=== PATIENT | female | born 2000 | race Caucasian/White ===

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

== ENCOUNTER 2022-07-30 14:00 | Emergency (ER) | payer BC, MEDICAID ==
[~2022-07-30] VITALS: Ht 167.6 cm; Wt 56.8 kg
[2022-07-30 14:43] LABS: BASOPHILS % (AUTO) 0.3 % (0-1); EOSINOPHILS # (AUTO) 0.1 X10'3 (0-0.9); EOSINOPHILS % (AUTO) 0.9 % (0-6); HEMOGLOBIN 14.1 g/dl (12.0-16.0); LYMPHOCYTES # (AUTO) 1.6 X10'3 (1.1-4.8); LYMPHOCYTES % (AUTO) 16.7 % (21-51); MEAN CORPUSCULAR HEMOGLOBIN 29.7 PG (27.0-31.0); MEAN CORPUSCULAR HGB CONC 33.7 g/dL (33.0-36.5); MEAN CORPUSCULAR VOLUME 88.1 FL (78-98); MEAN PLATELET VOLUME 7.3 FL (7.4-10.4); MONOCYTES # (AUTO) 0.8 X10'3 (0-0.9); MONOCYTES % (AUTO) 8.2 % (2-12); NEUTROPHILS # (AUTO) 7.2 X10'3 (1.8-7.7); NEUTROPHILS % (AUTO) 73.9 % (42-75); PLATELET COUNT 387 X10'3 (140-440); RED BLOOD COUNT 4.76 X10'6 (4.20-5.60); RED CELL DISTRIBUTION WIDTH 14.4 % (11.5-14.5); WHITE BLOOD COUNT 9.7 X10'3 (4.5-11.0)
[2022-07-30 14:46] LABS: CLARITY,URINE CLOUDY (Clear); COLOR,URINE YELLOW (Yellow); GLUCOSE, URINE >=1000 mg/dl (Neg); KETONES,URINE TRACE mg/dl (Neg); LEUKOCYTE ESTERASE ,URINE SMALL (Neg); NITRITES, URINE NEGATIVE (Neg); OCCULT BLOOD,URINE LARGE (Neg); PROTEIN,URINE 30 mg/dl (Neg); UROBILINOGEN,URINE 0.2 E.U/dL (0.2-1.0)
[2022-07-30 14:48] LABS: URINE HCG NEGATIVE (NEG)
[2022-07-30 14:50] LABS: UA COLLECTION TYPE CLN CATCH MIDSTREAM
[2022-07-30 14:55] LABS: BACTERIA,URINE 3+ /HPF (Neg); MUCUS STRANDS NONE SEEN /LPF (Neg); RBC,URINE 20-50 /HPF (0-2); SQUAMOUS EPITHELIAL CELL,UR MODERATE /LPF (FEW); TRANSITIONAL EPI CELLS,URINE FEW /HPF; WBC CLUMPS,URINE FEW /HPF (NEGATIVE); WBC,URINE 50-100 /HPF (0-4)
[2022-07-30 15:02] LABS: ALANINE AMINOTRANSFERASE 25 U/L (12-78); ALBUMIN 3.8 G/DL (3.4-5.0); ALBUMIN/GLOBULIN RATIO 1.2 (1.1-1.5); ALKALINE PHOSPHATASE 133 IU/L (46-116); ANION GAP 9 (8-16); ASPARTATE AMINO TRANSFERASE 22 U/L (10-37); BILIRUBIN,TOTAL 1.5 MG/DL (0.1-1.0); BLOOD UREA NITROGEN 14 MG/DL (7-18); BUN/CREATININE RATIO 15.4 (6.6-38.0); CALCIUM 8.7 MG/DL (8.5-10.1); CHLORIDE 103 MMOL/L (99-107); CREATININE 0.91 MG/DL (0.40-0.90); GLUCOSE 360 MG/DL (70-104); LIPASE < 50 U/L (73-393); POTASSIUM 4.1 MMOL/L (3.5-5.1); SODIUM 136 MMOL/L (135-145); TOTAL CARBON DIOXIDE 24.1 MMOL/L (24-32); eGFR 78 ML/MIN
[2022-07-30] MEDS ORDERED: TOPI25TA15 PO (15:28)
[2022-07-30] MEDS ORDERED: normal saline 1000ml 1,000 ML IV ONE (15:30)
[2022-07-30] MEDS ORDERED: CefTRIAXone/D5W-Rocephin 1gm 50 ML IV ONE (15:30)
--- NOTE | 2022-07-30 15:38 | NUR ---
pt is allergic to penicillin and has rocephin ordered, pharmacy is questioning the order. the pt and the provider are aware and are ok with the medication.
[2022-07-30] MEDS ORDERED: CEFD300C3 PO (16:21)
--- NOTE | 2022-08-02 14:14 | NUR ---
DR RING CALLED PT, PHONE IS NOT IN SERVICE Addendum: 08/02/22 at 1443 by DAYNA LETTER SENT TO PT
== END 2022-07-30 17:11 | disposition home or self-care (01) ==
LOC: ER 14:00
DX: N39.0 Urinary tract infection, site not specified (principal); E11.65 Type 2 diabetes mellitus with hyperglycemia; Z88.0 Allergy status to penicillin; Z88.1 Allergy status to other antibiotic agents; Z88.2 Allergy status to sulfonamides; Z79.899 Other long term (current) drug therapy
CPT/HCPCS: 36415; 80053; 81001; 81025; 82948; 83690; 85025; 87077; 87088; 87186; 96374; 99283; J0696; J7030

== ENCOUNTER 2022-09-06 02:44 | Emergency (ER) | payer BC, MEDICAID ==
[~2022-09-06] VITALS: Ht 167.6 cm; Wt 54.5 kg
[~2022-09-06 02:44] MED LIST: CIPR2.5D21 EACHEYE; TOPI25TA15 PO
[2022-09-06] MEDS ORDERED: normal saline 1000ML IV soln IVB ONE (03:00)
[2022-09-06] MEDS ORDERED: ipratropium/albuterol 3ml nebule NEB ONE (03:00)
[2022-09-06] MEDS ORDERED: methylPREDNISolone sod succ 125mg/2ml vial IV ONE (03:00)
[2022-09-06 03:37] LABS: BASOPHILS # (AUTO) 0.1 X10'3 (0-0.2); BASOPHILS % (AUTO) 0.5 % (0-1); EOSINOPHILS # (AUTO) 0.8 X10'3 (0-0.9); EOSINOPHILS % (AUTO) 7.7 % (0-6); HEMATOCRIT 41.9 % (35.0-45.0); HEMOGLOBIN 14.2 g/dl (12.0-16.0); LYMPHOCYTES # (AUTO) 3.2 X10'3 (1.1-4.8); LYMPHOCYTES % (AUTO) 31.1 % (21-51); MEAN CORPUSCULAR HEMOGLOBIN 29.9 PG (27.0-31.0); MEAN CORPUSCULAR VOLUME 87.8 FL (78-98); MEAN PLATELET VOLUME 7.4 FL (7.4-10.4); MONOCYTES # (AUTO) 0.7 X10'3 (0-0.9); NEUTROPHILS # (AUTO) 5.5 X10'3 (1.8-7.7); NEUTROPHILS % (AUTO) 53.7 % (42-75); PLATELET COUNT 342 X10'3 (140-440); RED BLOOD COUNT 4.77 X10'6 (4.20-5.60); RED CELL DISTRIBUTION WIDTH 13.2 % (11.5-14.5); WHITE BLOOD COUNT 10.2 X10'3 (4.5-11.0)
[2022-09-06 03:44] LABS: ALANINE AMINOTRANSFERASE 19 U/L (12-78); ALBUMIN 3.7 G/DL (3.4-5.0); ALBUMIN/GLOBULIN RATIO 0.9 (1.1-1.5); ALKALINE PHOSPHATASE 156 IU/L (46-116); ANION GAP 12 (8-16); ASPARTATE AMINO TRANSFERASE 13 U/L (10-37); BILIRUBIN,TOTAL 0.5 MG/DL (0.1-1.0); BLOOD UREA NITROGEN 7 MG/DL (7-18); BUN/CREATININE RATIO 7.9 (10.0-20.0); CALCIUM 8.9 MG/DL (8.5-10.1); CHLORIDE 100 MMOL/L (99-107); CREATININE 0.89 MG/DL (0.40-0.90); GLUCOSE 278 MG/DL (70-104); POTASSIUM 3.2 MMOL/L (3.5-5.1); SODIUM 136 MMOL/L (135-145); TOTAL CARBON DIOXIDE 24.1 MMOL/L (24-32); TOTAL PROTEIN 7.6 G/DL (6.4-8.2); eGFR 80 ML/MIN
[2022-09-06] MEDS ORDERED: PRED20TA PO (04:07)
[2022-09-06] MEDS ORDERED: ALBU90AE INH (04:10)
[2022-09-06 04:34] VITALS: BP 133/85
== END 2022-09-06 04:36 | disposition home or self-care (01) ==
LOC: ER 02:44
DX: J45.909 Unspecified asthma, uncomplicated (principal); E11.9 Type 2 diabetes mellitus without complications; Z98.890 Other specified postprocedural states; Z88.0 Allergy status to penicillin; Z88.2 Allergy status to sulfonamides; Z88.1 Allergy status to other antibiotic agents; Z79.899 Other long term (current) drug therapy
CPT/HCPCS: 36415; 80053; 82948; 85025; 94640; 96361; 96374; 99283; J2930; J7030; 94760; 96360

== ENCOUNTER 2022-09-10 13:13 | Emergency (ER) | payer BC, MEDICAID ==
[~2022-09-10] VITALS: Ht 167.6 cm; Wt 56.0 kg
[~2022-09-10 13:13] MED LIST changes: +ALBU90AE INH; -CIPR2.5D21 EACHEYE; +PRED20TA PO
[2022-09-10 13:21] VITALS: BP 122/82
[2022-09-10] MEDS ORDERED: ALPRAZolam 0.5mg tablet PO ONE (14:10)
[2022-09-10] MEDS ORDERED: ALPR-624 PO (14:12)
== END 2022-09-10 14:32 | disposition home or self-care (01) ==
LOC: ER 13:13
DX: F41.9 Anxiety disorder, unspecified (principal); J45.909 Unspecified asthma, uncomplicated; E11.9 Type 2 diabetes mellitus without complications; Z88.0 Allergy status to penicillin; Z88.1 Allergy status to other antibiotic agents; Z88.2 Allergy status to sulfonamides; Z88.8 Allergy status to other drugs, medicaments and biological substances; Z79.899 Other long term (current) drug therapy; Z79.1 Long term (current) use of non-steroidal anti-inflammatories (NSAID)
CPT/HCPCS: 99283

== ENCOUNTER 2022-10-06 21:00 | Inpatient (IN) | payer BC, MEDICAID ==
[~2022-10-06] VITALS: Ht 167.6 cm; Wt 57.6 kg
[~2022-10-06 21:00] MED LIST changes: +ALPR-624 PO; -PRED20TA PO
[2022-10-06] MEDS ORDERED: normal saline 1000ml 1,000 ML IVB ONE (21:15)
[2022-10-06 21:36] LABS: URINE HCG NEGATIVE (NEG)
[2022-10-06 21:40] LABS: CLARITY,URINE CLEAR (Clear); COLOR,URINE STRAW (Yellow); GLUCOSE, URINE >=1000 mg/dl (Neg); KETONES,URINE >=80 mg/dl (Neg); LEUKOCYTE ESTERASE ,URINE NEGATIVE (Neg); NITRITES, URINE NEGATIVE (Neg); OCCULT BLOOD,URINE NEGATIVE (Neg); PROTEIN,URINE NEGATIVE (Neg); UROBILINOGEN,URINE 0.2 E.U/dL (0.2-1.0)
[2022-10-06 21:40] LABS: BASOPHILS % (AUTO) 0.3 % (0-1); EOSINOPHILS # (AUTO) 0.1 X10'3 (0-0.9); EOSINOPHILS % (AUTO) 0.6 % (0-6); HEMATOCRIT 41.5 % (35.0-45.0); LYMPHOCYTES # (AUTO) 2.7 X10'3 (1.1-4.8); LYMPHOCYTES % (AUTO) 30.6 % (21-51); MEAN CORPUSCULAR HEMOGLOBIN 30.1 PG (27.0-31.0); MEAN CORPUSCULAR HGB CONC 33.7 g/dL (33.0-36.5); MEAN CORPUSCULAR VOLUME 89.2 FL (78-98); MEAN PLATELET VOLUME 7.9 FL (7.4-10.4); MONOCYTES # (AUTO) 0.8 X10'3 (0-0.9); MONOCYTES % (AUTO) 8.5 % (2-12); NEUTROPHILS # (AUTO) 5.3 X10'3 (1.8-7.7); PLATELET COUNT 308 X10'3 (140-440); RED BLOOD COUNT 4.65 X10'6 (4.20-5.60); WHITE BLOOD COUNT 8.9 X10'3 (4.5-11.0)
[2022-10-06 21:41] LABS: UA COLLECTION TYPE CLN CATCH MIDSTREAM
[2022-10-06 21:58] LABS: ALANINE AMINOTRANSFERASE 32 U/L (12-78); ALBUMIN 3.9 G/DL (3.4-5.0); ALBUMIN/GLOBULIN RATIO 1.2 (1.1-1.5); ALKALINE PHOSPHATASE 184 IU/L (46-116); ANION GAP 19 (8-16); ASPARTATE AMINO TRANSFERASE 32 U/L (10-37); BILIRUBIN,TOTAL 0.9 MG/DL (0.1-1.0); BLOOD UREA NITROGEN 17 MG/DL (7-18); BUN/CREATININE RATIO 15.2 (10.0-20.0); CHLORIDE 91 MMOL/L (99-107); CREATININE 1.12 MG/DL (0.40-0.90); POTASSIUM 4.2 MMOL/L (3.5-5.1); SODIUM 125 MMOL/L (135-145); TOTAL CARBON DIOXIDE 15.4 MMOL/L (24-32); TOTAL PROTEIN 7.1 G/DL (6.4-8.2); eGFR 61 ML/MIN
[2022-10-06 22:27] LABS: BACTERIA,URINE FEW /HPF (Neg); RBC,URINE 0-2 /HPF (0-2); SQUAMOUS EPITHELIAL CELL,UR MODERATE /LPF (FEW); WBC,URINE 0-4 /HPF (0-4)
[2022-10-06] MEDS ORDERED: insulin regular, human U-100 3ml vial - multi-dose IV PRN (22:30)
[2022-10-06] MEDS ORDERED: normal saline 1000ml 1,000 ML IV SCH (22:30)
[2022-10-06] MEDS ORDERED: Insulin Reg/NS 100units/100mL 100 ML IV SCH (22:30)
[2022-10-06] MEDS ORDERED: normal saline 1000ML IV soln IVB ONE (22:30)
[2022-10-06 22:47] LABS: GLUCOSE 670 MG/DL (70-104)
[2022-10-06 23:06] LABS: PHOSPHORUS 4.7 MG/DL (2.3-4.5)
--- NOTE | 2022-10-07 00:18 | NUR ---
pt up to the BR
[2022-10-07] MEDS ORDERED: mag hydrox/Alum hydrox/simeth 30ml oral suspension PO PRN (00:20)
[2022-10-07] MEDS ORDERED: acetaminophen 325mg tablet PO PRN (00:20)
[2022-10-07] MEDS ORDERED: potassium Cl 20 mEq SR tablet PO PRN ×2 (00:20)
[2022-10-07] MEDS ORDERED: potassium Cl 40MEQ/1/2NS 520ml 520 ML IV PRN (00:20)
[2022-10-07] MEDS ORDERED: magnesium hydroxide 30ml (MOM) UD suspension PO PRN (00:20)
[2022-10-07] MEDS ORDERED: ondansetron/PF 4mg/2ml inj IV PRN (00:20)
[2022-10-07] MEDS: normal saline 1000ml 1,000 ML IV SCH ×3 (00:35→13:40)
[2022-10-07] MEDS: potassium CL 20mEq in D5-1/2NS 1,000 ML IV PRN ×3 (01:17→11:09)
[2022-10-07 01:40] LABS: ALBUMIN 3.2 G/DL (3.4-5.0); ANION GAP 12 (8-16); BLOOD UREA NITROGEN 13 MG/DL (7-18); BUN/CREATININE RATIO 15.5 (10.0-20.0); CALCIUM 7.7 MG/DL (8.5-10.1); CHLORIDE 106 MMOL/L (99-107); CREATININE 0.84 MG/DL (0.40-0.90); GLUCOSE 249 MG/DL (70-104); POTASSIUM 3.3 MMOL/L (3.5-5.1); SODIUM 135 MMOL/L (135-145); TOTAL CARBON DIOXIDE 16.6 MMOL/L (24-32); eGFR 86 ML/MIN
[2022-10-07 04:24] LABS: ALBUMIN 2.8 G/DL (3.4-5.0); ANION GAP 7 (8-16); BLOOD UREA NITROGEN 10 MG/DL (7-18); BUN/CREATININE RATIO 12.8 (10.0-20.0); CALCIUM 7.6 MG/DL (8.5-10.1); CHLORIDE 109 MMOL/L (99-107); CREATININE 0.78 MG/DL (0.40-0.90); GLUCOSE 188 MG/DL (70-104); POTASSIUM 3.5 MMOL/L (3.5-5.1); SODIUM 137 MMOL/L (135-145); TOTAL CARBON DIOXIDE 21.3 MMOL/L (24-32); eGFR > 90 ML/MIN
[2022-10-07] MEDS ORDERED: ONDA4TAB12 PO (05:20)
[2022-10-07] MEDS ORDERED: ALBU18HF2 INH (05:21)
[2022-10-07] MEDS ORDERED: albuterol 2.5 MG/3 ML nebule NEB PRN (05:30)
--- NOTE | 2022-10-07 05:43 | NUR ---
PER MD REYNA INSULIN DRIP TO BE DECREASED FROM 5UNITS/HR TO 4UNITS/HR.
--- NOTE | 2022-10-07 07:10 | NUR ---
BS 79 mg/dl this am. Held insulin drip and called Dr. Little regarding this. Received order to give patient orange juice and recheck blood sugar in 1 hour.
[2022-10-07] MEDS ORDERED: K and/or MAG REPLACEMENT MC SCH (08:00)
[2022-10-07] MEDS ORDERED: docusate sod 100mg capsule PO SCH (08:00)
[2022-10-07] MEDS ORDERED: glucagon, human recombinant 1mg kit SUBCUT PRN (10:55)
[2022-10-07] MEDS ORDERED: dextrose 50%-water 50ml dispensing syringe IV PRN ×2 (10:55)
[2022-10-07] MEDS ORDERED: MESSAGE TO PHARMACY PO ONE (10:55)
[2022-10-07] MEDS ORDERED: DEXTROSE 15 GM of carb/4 tabs (each vial/BOTTLE has 4 tablets) PO PRN ×2 (10:55)
[2022-10-07] MEDS ORDERED: insulin Lispro (HumaLOG) vial - multi-dose SQ SCH (10:55)
--- NOTE | 2022-10-07 10:59 | NUR ---
Dr. Little seen this patient not too long ago. Dr. Little gave verbal order to advance the clear liquid diet to carb control diet as tolerated, to d/c insulin drip per protocol, and to initiate hyperglycemia/hypoglycemia protocol
--- NOTE | 2022-10-07 11:25 | NUR ---
Patient had late breakfast today, clear liquid diet. Pt tolerated clear liquid when she ate her clear liquid diet breakfast. Will d/c the insulin drip
--- NOTE | 2022-10-07 13:00 | NUR ---
Patient in room ED 1. I have received report from ED RN and had the opportunity to ask questions and assume patient care.
--- NOTE | 2022-10-07 13:29 | NUR ---
PAGER ID: [phone] MESSAGE: Janelle Triana 2022 B- Pt wanting repeat DKA labs. Pt asking to go home to her babies. -Kristen EXT [id number] Addendum: 10/07/22 at 1345 by Kristen Alves RN Orders received, please see interventions
--- NOTE | 2022-10-07 13:45 | NUR ---
PAGER ID: [phone] MESSAGE: Janelle Triana, [id number] B- Pt ate 100% of HH lunch. No s/s of n/v. Labs being drawn now. -Kristen EXT [id number]
--- NOTE | 2022-10-07 13:47 | NUR ---
Pt asking to DC home. Pt declined Admission assessment, 2 RN skin check, as well as the rest of admission interventions. Pt states she does not want to stay so doing the admission isn't necessary. MD Sidney ballard, please see notes. Pt tolerating CC diet for lunch. No s/s of n/v. Pt admittedly asking to go home and not stay the night. Addendum: 10/07/22 at 1423 by Kristen Alves RN Pt states she will wait for labs to result. Pt still declines any admission assessment. Charge Nurse and made aware.
[2022-10-07 14:02] VITALS: BP 102/67
[2022-10-07 14:07] LABS: ANION GAP 9 (8-16); BLOOD UREA NITROGEN 6 MG/DL (7-18); BUN/CREATININE RATIO 7.7 (10.0-20.0); CALCIUM 8.2 MG/DL (8.5-10.1); CHLORIDE 105 MMOL/L (99-107); CREATININE 0.78 MG/DL (0.40-0.90); GLUCOSE 249 MG/DL (70-104); POTASSIUM 3.9 MMOL/L (3.5-5.1); SODIUM 136 MMOL/L (135-145); eGFR > 90 ML/MIN
--- NOTE | 2022-10-07 14:22 | NUR ---
PAGER ID: [phone] MESSAGE: Katharine Triana 3023 B- Current labs resulted. -Kristen EXT [phone]
--- NOTE | 2022-10-07 14:56 | NUR ---
PAGER ID: [phone] MESSAGE: Janelle Triana [phone] B- Pt inquiring about discharge again.- Kristen ext [phone]
--- NOTE | 2022-10-07 15:25 | NUR ---
Pt DC'd to personal vehicle, Boyfriend driving. PIV to RFA removed, tip intact, no c/o pain with removal. VSS, Pt afebrile, no issues with medication. No s/s of hyper/hypoglycemia Discharge education provided. All discharge questions answered. All belongings left with Pt.
[2022-10-07] MEDS ORDERED: topiramate 25mg tablet PO SCH (21:00)
[2022-10-07] MEDS ORDERED: insulin glargine (Lantus) pen - multi-dose SQ SCH (21:00)
== END 2022-10-07 15:31 | disposition home or self-care (01) | DRG 919 ==
LOC: ER 21:00 → ED HOLD 10-07 00:19 → PCU 3S 10-07 13:23
PROVIDERS: ADMIT Internal Medicine; ATTEND Internal Medicine
DX: T85.614A Breakdown (mechanical) of insulin pump, initial encounter (principal); E10.10 Type 1 diabetes mellitus with ketoacidosis without coma; J45.909 Unspecified asthma, uncomplicated; Z79.4 Long term (current) use of insulin; Z88.0 Allergy status to penicillin; Z88.2 Allergy status to sulfonamides; Z88.8 Allergy status to other drugs, medicaments and biological substances; Z79.899 Other long term (current) drug therapy
CPT/HCPCS: 36415; 80048; 80053; 81001; 81025; 82948; 84100; 85025; 99285; G0378; J1815; J3480; J7030

== ENCOUNTER 2022-10-11 22:27 | Inpatient (IN) | payer BC, MEDICAID ==
[~2022-10-11] VITALS: Ht 167.6 cm; Wt 57.0 kg
[~2022-10-11 22:27] MED LIST changes: +ALBU18HF2 INH; -ALBU90AE INH; -ALPR-624 PO; +ONDA4TAB12 PO
[2022-10-11] MEDS ORDERED: normal saline 1000ml 1,000 ML IV ONE (22:50)
[2022-10-11] MEDS ORDERED: INSU100V11 SQ (23:09)
[2022-10-11 23:31] LABS: BASOPHILS # (AUTO) 0.1 X10'3 (0-0.2); BASOPHILS % (AUTO) 0.4 % (0-1); EOSINOPHILS # (AUTO) 0.1 X10'3 (0-0.9); EOSINOPHILS % (AUTO) 0.8 % (0-6); HEMATOCRIT 41.7 % (35.0-45.0); HEMOGLOBIN 13.7 g/dl (12.0-16.0); LYMPHOCYTES # (AUTO) 2.7 X10'3 (1.1-4.8); LYMPHOCYTES % (AUTO) 16.3 % (21-51); MEAN CORPUSCULAR HEMOGLOBIN 29.3 PG (27.0-31.0); MEAN CORPUSCULAR HGB CONC 32.9 g/dL (33.0-36.5); MEAN CORPUSCULAR VOLUME 89.1 FL (78-98); MEAN PLATELET VOLUME 7.5 FL (7.4-10.4); MONOCYTES # (AUTO) 1.1 X10'3 (0-0.9); MONOCYTES % (AUTO) 6.6 % (2-12); NEUTROPHILS # (AUTO) 12.5 X10'3 (1.8-7.7); NEUTROPHILS % (AUTO) 75.9 % (42-75); PLATELET COUNT 484 X10'3 (140-440); RED BLOOD COUNT 4.68 X10'6 (4.20-5.60); RED CELL DISTRIBUTION WIDTH 12.7 % (11.5-14.5); WHITE BLOOD COUNT 16.4 X10'3 (4.5-11.0)
[2022-10-11 23:33] LABS: CLARITY,URINE CLEAR (Clear); COLOR,URINE STRAW (Yellow); GLUCOSE, URINE >=1000 mg/dl (Neg); KETONES,URINE 40 mg/dl (Neg); LEUKOCYTE ESTERASE ,URINE NEGATIVE (Neg); NITRITES, URINE NEGATIVE (Neg); OCCULT BLOOD,URINE NEGATIVE (Neg); PROTEIN,URINE NEGATIVE (Neg); UROBILINOGEN,URINE 0.2 E.U/dL (0.2-1.0)
[2022-10-11 23:37] LABS: URINE HCG NEGATIVE (NEG)
[2022-10-11 23:38] LABS: UA COLLECTION TYPE CLN CATCH MIDSTREAM
[2022-10-11 23:39] LABS: SQUAMOUS EPITHELIAL CELL,UR MANY /LPF (FEW)
[2022-10-11 23:40] LABS: BACTERIA,URINE NONE SEEN /HPF (Neg); RBC,URINE 0-2 /HPF (0-2); WBC,URINE 0-4 /HPF (0-4)
[2022-10-11 23:46] LABS: ALANINE AMINOTRANSFERASE 27 U/L (12-78); ALBUMIN 4.1 G/DL (3.4-5.0); ALBUMIN/GLOBULIN RATIO 1.2 (1.1-1.5); ALKALINE PHOSPHATASE 203 IU/L (46-116); ANION GAP 18 (8-16); ASPARTATE AMINO TRANSFERASE 14 U/L (10-37); BILIRUBIN,TOTAL 1.5 MG/DL (0.1-1.0); BLOOD UREA NITROGEN 25 MG/DL (7-18); BUN/CREATININE RATIO 22.3 (10.0-20.0); CALCIUM 9.7 MG/DL (8.5-10.1); CHLORIDE 90 MMOL/L (99-107); CREATININE 1.12 MG/DL (0.40-0.90); LIPASE 55 U/L (73-393); POTASSIUM 4.3 MMOL/L (3.5-5.1); SODIUM 127 MMOL/L (135-145); TOTAL CARBON DIOXIDE 18.7 MMOL/L (24-32); TOTAL PROTEIN 7.6 G/DL (6.4-8.2); eGFR 61 ML/MIN
[2022-10-11] MEDS ORDERED: sodium phosphate inj. 15 MMOL in dextrose 5%-water 250 ML IV PRN (23:55)
[2022-10-11] MEDS ORDERED: potassium Cl 20 mEq SR tablet PO PRN ×2 (23:55)
[2022-10-11] MEDS ORDERED: sodium bicarbonate (8.4%) inj. 50 MEQ in dextrose 5% water 500ml 250 ML IV PRN (23:55)
[2022-10-11] MEDS ORDERED: Insulin Reg/NS 100units/100mL 100 ML IV SCH (23:55)
[2022-10-11] MEDS ORDERED: potassium Cl 40MEQ/1/2NS 520ml 520 ML IV PRN ×2 (23:55)
[2022-10-11] MEDS ORDERED: potassium CL 20mEq in D5-1/2NS 1,000 ML IV PRN (23:55)
[2022-10-11] MEDS ORDERED: insulin regular, human U-100 3ml vial - multi-dose IV PRN (23:55)
[2022-10-11] MEDS ORDERED: sodium bicarbonate (8.4%) inj. 100 MEQ in dextrose 5% water 500ml 500 ML IV PRN (23:55)
[2022-10-11] MEDS ORDERED: Neutra Phos packet PO PRN (23:55)
[2022-10-12 00:03] LABS: GLUCOSE 733 MG/DL (70-104)
[2022-10-12] MEDS: normal saline 1000ml 1,000 ML IV SCH ×4 (00:43→03:55)
[2022-10-12 00:50] LABS: PHOSPHORUS 5.3 MG/DL (2.3-4.5)
[2022-10-12] MEDS ORDERED: insulin regular, human U-100 3ml vial - multi-dose IV PRN (01:00)
[2022-10-12] MEDS ORDERED: sodium bicarbonate (8.4%) inj. 100 MEQ in dextrose 5% water 500ml 500 ML IV PRN (01:00)
[2022-10-12] MEDS ORDERED: normal saline 1000ml 1,000 ML IV SCH (01:00)
[2022-10-12] MEDS ORDERED: potassium Cl 40MEQ/1/2NS 520ml 520 ML IV PRN ×3 (01:00)
[2022-10-12] MEDS ORDERED: sodium phosphate inj. 30 MMOL in dextrose 5%-water 250 ML IV PRN (01:00)
[2022-10-12] MEDS ORDERED: potassium Cl 20 mEq SR tablet PO PRN ×4 (01:00)
[2022-10-12] MEDS ORDERED: sodium bicarbonate (8.4%) inj. 50 MEQ in dextrose 5% water 500ml 250 ML IV PRN (01:00)
[2022-10-12] MEDS ORDERED: acetaminophen 325mg tablet PO PRN (01:00)
[2022-10-12] MEDS ORDERED: Neutra Phos packet PO PRN (01:00)
[2022-10-12] MEDS ORDERED: ondansetron/PF 4mg/2ml inj IV PRN (01:00)
[2022-10-12] MEDS ORDERED: magnesium hydroxide 30ml (MOM) UD suspension PO PRN (01:00)
[2022-10-12] MEDS ORDERED: Insulin Reg/NS 100units/100mL 100 ML IV SCH (01:00)
[2022-10-12] MEDS ORDERED: sodium phosphate inj. 15 MMOL in dextrose 5%-water 250 ML IV PRN (01:00)
[2022-10-12] MEDS ORDERED: mag hydrox/Alum hydrox/simeth 30ml oral suspension PO PRN (01:00)
[2022-10-12] MEDS ORDERED: potassium CL 20mEq in D5-1/2NS 1,000 ML IV PRN ×2 (01:00→04:30)
[2022-10-12 03:44] LABS: ANION GAP 7 (8-16); BLOOD UREA NITROGEN 18 MG/DL (7-18); CALCIUM 7.8 MG/DL (8.5-10.1); CHLORIDE 107 MMOL/L (99-107); CREATININE 0.72 MG/DL (0.40-0.90); GLUCOSE 216 MG/DL (70-104); MAGNESIUM 1.8 MG/DL (1.5-2.4); PHOSPHORUS 2.8 MG/DL (2.3-4.5); POTASSIUM 3.3 MMOL/L (3.5-5.1); SODIUM 136 MMOL/L (135-145); TOTAL CARBON DIOXIDE 22.3 MMOL/L (24-32); eGFR > 90 ML/MIN
[2022-10-12] MEDS ORDERED: potassium Cl 20 mEq SR tablet PO STA (04:39)
[2022-10-12] MEDS ORDERED: K and/or MAG REPLACEMENT MC SCH ×3 (08:00)
[2022-10-12] MEDS ORDERED: docusate sod 100mg capsule PO SCH (08:00)
[2022-10-12 11:19] VITALS: BP 109/68
== END 2022-10-12 11:19 | disposition home or self-care (01) | DRG 638 ==
LOC: ER 22:27 → ED HOLD 10-12 01:06
PROVIDERS: ADMIT Family Medicine; ATTEND Internal Medicine
DX: E10.10 Type 1 diabetes mellitus with ketoacidosis without coma (principal); E87.1 Hypo-osmolality and hyponatremia; N17.9 Acute kidney failure, unspecified; D72.829 Elevated white blood cell count, unspecified; E86.0 Dehydration; J45.909 Unspecified asthma, uncomplicated; Z79.4 Long term (current) use of insulin; Z80.41 Family history of malignant neoplasm of ovary; Z83.49 Family history of other endocrine, nutritional and metabolic diseases; Z87.891 Personal history of nicotine dependence
CPT/HCPCS: 36415; 80048; 80053; 81001; 81025; 82948; 83690; 83735; 84100; 85025; 99285; G0378; J1815; J3480; J7030

== ENCOUNTER 2023-01-22 13:32 | Emergency (ER) | payer BC, MEDICAID ==
[~2023-01-22] VITALS: Ht 165.1 cm; Wt 65.0 kg
[~2023-01-22 13:32] MED LIST changes: -ALBU18HF2 INH; +INSU100V11 SQ; -ONDA4TAB12 PO; -TOPI25TA15 PO
[2023-01-22 14:08] VITALS: BP 136/74; PULSE 136; RESP 18; TEMP 97.8; O2SAT 98
[2023-01-22 15:08] LABS: BASOPHILS # (AUTO) 0.1 X10'3 (0-0.2); BASOPHILS % (AUTO) 0.5 % (0-1); EOSINOPHILS # (AUTO) 0.1 X10'3 (0-0.9); EOSINOPHILS % (AUTO) 1.1 % (0-6); HEMATOCRIT 42.1 % (35.0-45.0); HEMOGLOBIN 14.5 g/dl (12.0-16.0); LYMPHOCYTES # (AUTO) 2.4 X10'3 (1.1-4.8); LYMPHOCYTES % (AUTO) 20.9 % (21-51); MEAN CORPUSCULAR HEMOGLOBIN 29.8 PG (27.0-31.0); MEAN CORPUSCULAR HGB CONC 34.5 g/dL (33.0-36.5); MEAN CORPUSCULAR VOLUME 86.3 FL (78-98); MEAN PLATELET VOLUME 7.5 FL (7.4-10.4); MONOCYTES # (AUTO) 0.6 X10'3 (0-0.9); MONOCYTES % (AUTO) 5.5 % (2-12); NEUTROPHILS # (AUTO) 8.3 X10'3 (1.8-7.7); PLATELET COUNT 377 X10'3 (140-440); RED BLOOD COUNT 4.88 X10'6 (4.20-5.60); RED CELL DISTRIBUTION WIDTH 12.5 % (11.5-14.5); WHITE BLOOD COUNT 11.6 X10'3 (4.5-11.0)
[2023-01-22 15:29] LABS: ALANINE AMINOTRANSFERASE 12 U/L (12-78); ALBUMIN 3.6 G/DL (3.4-5.0); ALKALINE PHOSPHATASE 112 IU/L (46-116); ANION GAP 9 (8-16); ASPARTATE AMINO TRANSFERASE 17 U/L (10-37); BILIRUBIN,TOTAL 0.5 MG/DL (0.1-1.0); BLOOD UREA NITROGEN 9 MG/DL (7-18); BUN/CREATININE RATIO 11.5 (10.0-20.0); CHLORIDE 103 MMOL/L (99-107); CREATININE 0.78 MG/DL (0.40-0.90); GLUCOSE 319 MG/DL (70-104); LIPASE < 50 U/L (73-393); POTASSIUM 3.8 MMOL/L (3.5-5.1); SODIUM 136 MMOL/L (135-145); TOTAL CARBON DIOXIDE 24.1 MMOL/L (24-32); TOTAL PROTEIN 7.3 G/DL (6.4-8.2); eCRCL 103 ML/MIN; eGFR > 90 ML/MIN
[2023-01-22 15:41] LABS: HCG SERUM QL NEGATIVE
== END 2023-01-22 19:56 | disposition left against medical advice (07) ==
LOC: ER 13:32
DX: R10.9 Unspecified abdominal pain (principal); F41.9 Anxiety disorder, unspecified; Z53.21 Procedure and treatment not carried out due to patient leaving prior to being seen by health care provider
CPT/HCPCS: 36415; 80053; 82948; 83690; 84703; 85025; 99281

== ENCOUNTER 2023-11-21 11:15 | Outpatient (CLI) | payer MEDICAID | END 2023-11-21 23:59 | disposition home or self-care (01) | LOC: RAD 11:15 | PROVIDERS: ATTEND Physician Assistant | DX: R10.2 Pelvic and perineal pain (principal) | CPT/HCPCS: 76830; 76856; 93976 ==

== ENCOUNTER 2024-05-28 21:27 | Emergency (ER) | payer MEDICAID ==
[~2024-05-28] VITALS: Ht 165.1 cm; Wt 62.6 kg
[2024-05-28 21:33] VITALS: TEMP 98.3
[2024-05-28 22:07] LABS: HEMATOCRIT 45.6 % (35.0-45.0); HEMOGLOBIN 15.5 g/dl (12.0-16.0); MEAN CORPUSCULAR HEMOGLOBIN 30.6 PG (27.0-31.0); MEAN CORPUSCULAR HGB CONC 33.9 g/dL (33.0-36.5); MEAN CORPUSCULAR VOLUME 90.3 FL (78-98); PLATELET COUNT 370 X10'3 (140-440); RED BLOOD COUNT 5.05 X10'6 (4.20-5.60); RED CELL DISTRIBUTION WIDTH 13.6 % (11.5-14.5); WHITE BLOOD COUNT 8.2 X10'3 (4.5-11.0)
[2024-05-28 22:08] LABS: BASOPHILS % (AUTO) 0.5 % (0-1); EOSINOPHILS # (AUTO) 0.2 X10'3 (0-0.9); LYMPHOCYTES % (AUTO) 25.1 % (21-51); MEAN PLATELET VOLUME 7.4 FL (7.4-10.4); MONOCYTES # (AUTO) 0.9 X10'3 (0-0.9); MONOCYTES % (AUTO) 10.5 % (2-12); NEUTROPHILS % (AUTO) 61.9 % (42-75)
[2024-05-28 22:20] LABS: ALANINE AMINOTRANSFERASE 247 U/L (12-78); ALBUMIN 4.1 G/DL (3.4-5.0); ALBUMIN/GLOBULIN RATIO 1.1 (1.1-1.5); ALKALINE PHOSPHATASE 180 IU/L (46-116); ANION GAP 14 (8-16); ASPARTATE AMINO TRANSFERASE 173 U/L (10-37); BILIRUBIN,TOTAL 0.8 MG/DL (0.1-1.0); BLOOD UREA NITROGEN 12 MG/DL (7-18); BUN/CREATININE RATIO 11.4 (10.0-20.0); CALCIUM 9.5 MG/DL (8.5-10.1); CHLORIDE 97 MMOL/L (99-107); CREATININE 1.05 MG/DL (0.40-0.90); GLUCOSE 382 MG/DL (70-104); POTASSIUM 3.5 MMOL/L (3.5-5.1); SODIUM 135 MMOL/L (135-145); TOTAL CARBON DIOXIDE 24.1 MMOL/L (24-32); eCRCL 75 ML/MIN; eGFR 65 ML/MIN
[2024-05-28 22:20] LABS: BILIRUBIN,URINE NEGATIVE (Neg); CLARITY,URINE CLEAR (Clear); COLOR,URINE YELLOW (Yellow); GLUCOSE, URINE >=1000 mg/dl (Neg); KETONES,URINE NEGATIVE (Neg); NITRITES, URINE NEGATIVE (Neg); OCCULT BLOOD,URINE NEGATIVE (Neg); PH,URINE 6.5 (4.8-8.0); PROTEIN,URINE NEGATIVE (Neg); UROBILINOGEN,URINE 0.2 E.U/dL (0.2-1.0)
[2024-05-28 22:21] LABS: LEUKOCYTE ESTERASE ,URINE NEGATIVE (Neg); URINE HCG NEGATIVE (NEG)
[2024-05-28] MEDS: normal saline 1000ml 1,000 ML IV ONE ×2 (22:27→22:48)
[2024-05-28] MEDS: ondansetron/PF 4mg/2ml inj IV ONE (22:27)
[2024-05-28 22:59] LABS: UA COLLECTION TYPE CLN CATCH MIDSTREAM
[2024-05-28 23:02] LABS: BACTERIA,URINE 1+ /HPF (Neg); RBC,URINE NONE SEEN /HPF (0-2); SQUAMOUS EPITHELIAL CELL,UR FEW /LPF (FEW); WBC,URINE 0-4 /HPF (0-4)
[2024-05-28 23:53] VITALS: BP 132/81; PULSE 105; RESP 16; O2SAT 100
[2024-05-29] MEDS ORDERED: ONDA-243 PO (00:15)
== END 2024-05-29 00:43 | disposition home or self-care (01) ==
LOC: ER 21:28
DX: E10.65 Type 1 diabetes mellitus with hyperglycemia (principal); R11.0 Nausea; J45.909 Unspecified asthma, uncomplicated; Z88.0 Allergy status to penicillin; Z88.1 Allergy status to other antibiotic agents; Z88.2 Allergy status to sulfonamides; Z88.8 Allergy status to other drugs, medicaments and biological substances; Z90.79 Acquired absence of other genital organ(s); Z79.4 Long term (current) use of insulin
CPT/HCPCS: 36415; 80053; 81001; 81025; 82948; 85025; 96374; 99283; J2405; J7030

== ENCOUNTER 2024-07-04 21:24 | Inpatient (IN) | payer MEDICAID ==
[~2024-07-04] VITALS: Ht 152.4 cm; Wt 63.3 kg
[~2024-07-04 21:24] MED LIST changes: +ONDA-243 PO
[2024-07-04 22:29] LABS: BASOPHILS # (AUTO) 0.1 X10'3 (0-0.2); BASOPHILS % (AUTO) 0.4 % (0-1); EOSINOPHILS # (AUTO) 0.1 X10'3 (0-0.9); EOSINOPHILS % (AUTO) 0.5 % (0-6); HEMATOCRIT 44.5 % (35.0-45.0); HEMOGLOBIN 14.9 g/dl (12.0-16.0); LYMPHOCYTES # (AUTO) 2.8 X10'3 (1.1-4.8); LYMPHOCYTES % (AUTO) 19.6 % (21-51); MEAN CORPUSCULAR HEMOGLOBIN 30.4 PG (27.0-31.0); MEAN CORPUSCULAR HGB CONC 33.5 g/dL (33.0-36.5); MEAN CORPUSCULAR VOLUME 90.6 FL (78-98); MEAN PLATELET VOLUME 7.3 FL (7.4-10.4); MONOCYTES % (AUTO) 7.1 % (2-12); NEUTROPHILS # (AUTO) 10.3 X10'3 (1.8-7.7); NEUTROPHILS % (AUTO) 72.4 % (42-75); PLATELET COUNT 453 X10'3 (140-440); RED BLOOD COUNT 4.91 X10'6 (4.20-5.60); RED CELL DISTRIBUTION WIDTH 12.7 % (11.5-14.5); WHITE BLOOD COUNT 14.3 X10'3 (4.5-11.0)
[2024-07-04 22:45] LABS: ALANINE AMINOTRANSFERASE 37 U/L (12-78); ALBUMIN 4.1 G/DL (3.4-5.0); ALBUMIN/GLOBULIN RATIO 1.1 (1.1-1.5); ALKALINE PHOSPHATASE 236 IU/L (46-116); ANION GAP 17 (8-16); ASPARTATE AMINO TRANSFERASE 22 U/L (10-37); BILIRUBIN,TOTAL 1.9 MG/DL (0.1-1.0); BLOOD UREA NITROGEN 17 MG/DL (7-18); BUN/CREATININE RATIO 18.9 (10.0-20.0); CALCIUM 9.3 MG/DL (8.5-10.1); CHLORIDE 90 MMOL/L (99-107); POTASSIUM 4.3 MMOL/L (3.5-5.1); SODIUM 128 MMOL/L (135-145); TOTAL CARBON DIOXIDE 20.6 MMOL/L (24-32); TOTAL PROTEIN 7.7 G/DL (6.4-8.2); eCRCL 70 ML/MIN; eGFR 78 ML/MIN
[2024-07-04 22:55] LABS: GLUCOSE 634 MG/DL (70-104)
[2024-07-04 23:31] VITALS: TEMP 96.5
[2024-07-05] MEDS: ondansetron/PF 4mg/2ml inj IV ONE (00:34)
[2024-07-05 00:40] LABS: URINE HCG NEGATIVE (NEG)
[2024-07-05 00:41] LABS: BILIRUBIN,URINE NEGATIVE (Neg); CLARITY,URINE CLEAR (Clear); COLOR,URINE YELLOW (Yellow); GLUCOSE, URINE >=1000 mg/dl (Neg); KETONES,URINE >=80 mg/dl (Neg); LEUKOCYTE ESTERASE ,URINE NEGATIVE (Neg); NITRITES, URINE NEGATIVE (Neg); OCCULT BLOOD,URINE TRACE-INTACT (Neg); PH,URINE 5.5 (4.8-8.0); PROTEIN,URINE NEGATIVE (Neg); UROBILINOGEN,URINE 0.2 E.U/dL (0.2-1.0)
[2024-07-05] MEDS: normal saline 1000ml 1,000 ML IV ONE ×3 (00:47→13:00)
[2024-07-05 00:53] LABS: UA COLLECTION TYPE VOIDED
[2024-07-05 00:55] LABS: BACTERIA,URINE 3+ /HPF (Neg); RBC,URINE 0-2 /HPF (0-2); SQUAMOUS EPITHELIAL CELL,UR MODERATE /LPF (FEW); WBC,URINE 30-50 /HPF (0-4)
[2024-07-05] MEDS: CefTRIAXone/D5W-Rocephin 1gm 50 ML IV ONE (01:53)
[2024-07-05 02:17] LABS: URINE AMPHETAMINE SCREEN NEGATIVE (Neg); URINE BARBITUATE SCREEN NEGATIVE (Neg); URINE BENZODIAZEPINES SCREEN NEGATIVE (Neg); URINE CANNABINOID SCREEN NEGATIVE (Neg); URINE COCAINE SCREEN NEGATIVE (Neg); URINE METHADONE SCREEN NEGATIVE (Neg); URINE OPIATE SCREEN NEGATIVE (Neg); URINE PHENCYCLIDINE SCREEN NEGATIVE (Neg)
[2024-07-05] MEDS: insulin regular, human 10 units/0.1 ml syringe IV ONE (02:42)
[2024-07-05] MEDS: normal saline 1000ml 1,000 ML IV SCH (03:00)
[2024-07-05] MEDS ORDERED: ondansetron/PF 4mg/2ml inj IV PRN (03:00)
[2024-07-05] MEDS ORDERED: potassium Cl 40MEQ/1/2NS 520ml 520 ML IV PRN ×3 (03:00→14:30)
[2024-07-05] MEDS ORDERED: magnesium Cl slow-release 64mg tablet PO PRN (03:00)
[2024-07-05] MEDS ORDERED: HYDROcodone/acetaminophen 5mg/325mg tablet PO PRN (03:00)
[2024-07-05] MEDS ORDERED: magnesium sulf-water 2g/50mL 50 ML IV PRN ×3 (03:00→14:30)
[2024-07-05] MEDS ORDERED: potassium Cl 20 mEq SR tablet PO PRN ×2 (03:00)
[2024-07-05] MEDS ORDERED: acetaminophen 325mg tablet PO PRN ×2 (03:00)
[2024-07-05] MEDS ORDERED: magnesium sulf-water 4G/100mL 100 ML IV PRN (03:00)
[2024-07-05] MEDS ORDERED: mag hydrox/Alum hydrox/simeth 30ml oral suspension PO PRN (03:00)
[2024-07-05] MEDS ORDERED: sodium phosphate inj. 15 MMOL in dextrose 5%-water 250 ML IV PRN ×2 (03:05→14:30)
[2024-07-05] MEDS ORDERED: potassium Cl 40MEQ/270ML bag 270 ML IV PRN ×2 (03:05→14:30)
[2024-07-05] MEDS ORDERED: Insulin Reg/NS 100units/100mL 100 ML IV SCH (03:05)
[2024-07-05] MEDS ORDERED: dextrose 50%-water 50ml dispensing syringe IV PRN ×4 (03:05→14:30)
[2024-07-05] MEDS: Insulin Reg/NS 100units/100mL 100 ML IV SCH ×2 (03:18→15:37)
[2024-07-05 05:56] LABS: MAGNESIUM 1.9 MG/DL (1.5-2.4); PHOSPHORUS 3.4 MG/DL (2.3-4.5); POTASSIUM 3.7 MMOL/L (3.5-5.1)
[2024-07-05 07:36] LABS: BASOPHILS % (AUTO) 0.4 % (0-1); EOSINOPHILS # (AUTO) 0.1 X10'3 (0-0.9); EOSINOPHILS % (AUTO) 0.7 % (0-6); HEMOGLOBIN 13.1 g/dl (12.0-16.0); LYMPHOCYTES % (AUTO) 29.3 % (21-51); MEAN CORPUSCULAR HGB CONC 34.5 g/dL (33.0-36.5); MEAN CORPUSCULAR VOLUME 89.7 FL (78-98); MEAN PLATELET VOLUME 7.1 FL (7.4-10.4); MONOCYTES # (AUTO) 0.9 X10'3 (0-0.9); MONOCYTES % (AUTO) 9.1 % (2-12); NEUTROPHILS # (AUTO) 6.3 X10'3 (1.8-7.7); NEUTROPHILS % (AUTO) 60.5 % (42-75); PLATELET COUNT 348 X10'3 (140-440); RED BLOOD COUNT 4.23 X10'6 (4.20-5.60); RED CELL DISTRIBUTION WIDTH 12.9 % (11.5-14.5); WHITE BLOOD COUNT 10.4 X10'3 (4.5-11.0)
[2024-07-05 07:52] LABS: ALANINE AMINOTRANSFERASE 28 U/L (12-78); ALBUMIN 3.1 G/DL (3.4-5.0); ALKALINE PHOSPHATASE 143 IU/L (46-116); ANION GAP 10 (8-16); ASPARTATE AMINO TRANSFERASE 23 U/L (10-37); BILIRUBIN,TOTAL 0.7 MG/DL (0.1-1.0); BLOOD UREA NITROGEN 12 MG/DL (7-18); BUN/CREATININE RATIO 17.6 (10.0-20.0); CALCIUM 7.9 MG/DL (8.5-10.1); CHLORIDE 104 MMOL/L (99-107); CREATININE 0.68 MG/DL (0.40-0.90); GLUCOSE 156 MG/DL (70-104); POTASSIUM 3.9 MMOL/L (3.5-5.1); SODIUM 135 MMOL/L (135-145); TOTAL CARBON DIOXIDE 20.6 MMOL/L (24-32); TOTAL PROTEIN 6.3 G/DL (6.4-8.2); eCRCL 92 ML/MIN; eGFR > 90 ML/MIN
[2024-07-05] MEDS: K and/or MAG REPLACEMENT MC SCH (08:00)
[2024-07-05] MEDS ORDERED: glucagon, human recombinant 1mg kit SUBCUT PRN (09:05)
[2024-07-05] MEDS ORDERED: DEXTROSE 15 GM of carb/4 tabs (each vial/BOTTLE has 4 tablets) PO PRN ×2 (09:05)
[2024-07-05] MEDS: CefTRIAXone/D5W-Rocephin 1gm 50 ML IV SCH (09:35)
[2024-07-05] MEDS: INSULIN LISPRO 100 UNIT/ML INSULN.PEN MULTI-DOSE SQ SCH ×2 (12:19→13:57)
[2024-07-05] MEDS: INSULIN LISPRO 100 UNIT/ML INSULN.PEN MULTI-DOSE SQ ONE (12:49)
[2024-07-05 14:06] LABS: ALBUMIN 3.2 G/DL (3.4-5.0); ANION GAP 20 (8-16); BLOOD UREA NITROGEN 12 MG/DL (7-18); BUN/CREATININE RATIO 11.7 (10.0-20.0); CHLORIDE 101 MMOL/L (99-107); CREATININE 1.03 MG/DL (0.40-0.90); GLUCOSE 345 MG/DL (70-104); POTASSIUM 3.9 MMOL/L (3.5-5.1); SODIUM 134 MMOL/L (135-145); eCRCL 61 ML/MIN; eGFR 66 ML/MIN
[2024-07-05 14:19] LABS: TOTAL CARBON DIOXIDE 13.2 MMOL/L (24-32)
[2024-07-05] MEDS: dextrose 5%-1/2 normal saline 1,000 ML IV SCH (14:30)
[2024-07-05] MEDS: ringers solution, lacted 1,000 ML IV SCH (15:32)
[2024-07-05 17:29] LABS: ALBUMIN 3.2 G/DL (3.4-5.0); ANION GAP 8 (8-16); BLOOD UREA NITROGEN 14 MG/DL (7-18); BUN/CREATININE RATIO 14.9 (10.0-20.0); CALCIUM 8.3 MG/DL (8.5-10.1); CHLORIDE 103 MMOL/L (99-107); CREATININE 0.94 MG/DL (0.40-0.90); GLUCOSE 230 MG/DL (70-104); POTASSIUM 3.4 MMOL/L (3.5-5.1); SODIUM 134 MMOL/L (135-145); eCRCL 67 ML/MIN; eGFR 74 ML/MIN
[2024-07-05] MEDS ORDERED: potassium Cl 20 mEq SR tablet PO STA (18:28)
[2024-07-05 18:42] LABS: ALANINE AMINOTRANSFERASE 31 U/L (12-78); ALBUMIN 3.2 G/DL (3.4-5.0); ALKALINE PHOSPHATASE 134 IU/L (46-116); ANION GAP 7 (8-16); ASPARTATE AMINO TRANSFERASE 15 U/L (10-37); BILIRUBIN,TOTAL 0.7 MG/DL (0.1-1.0); BLOOD UREA NITROGEN 13 MG/DL (7-18); BUN/CREATININE RATIO 15.1 (10.0-20.0); CHLORIDE 106 MMOL/L (99-107); CREATININE 0.86 MG/DL (0.40-0.90); GLUCOSE 168 MG/DL (70-104); POTASSIUM 3.3 MMOL/L (3.5-5.1); SODIUM 138 MMOL/L (135-145); TOTAL CARBON DIOXIDE 25.3 MMOL/L (24-32); TOTAL PROTEIN 6.5 G/DL (6.4-8.2); eCRCL 73 ML/MIN; eGFR 82 ML/MIN
[2024-07-05 19:25] VITALS: BP 116/70; PULSE 109; RESP 16; O2SAT 100
[2024-07-05] MEDS ORDERED: insulin glargine (Lantus) pen - multi-dose SQ SCH (21:00)
== END 2024-07-05 19:38 | disposition left against medical advice (07) | DRG 420 ==
LOC: ER 21:25 → ED HOLD 07-05 03:01
PROVIDERS: ADMIT Internal Medicine Pulmonary Disease; ATTEND Internal Medicine
DX: E10.10 Type 1 diabetes mellitus with ketoacidosis without coma (principal); E87.1 Hypo-osmolality and hyponatremia; J45.909 Unspecified asthma, uncomplicated; N39.0 Urinary tract infection, site not specified; Z53.29 Procedure and treatment not carried out because of patient's decision for other reasons; Z88.0 Allergy status to penicillin; Z88.8 Allergy status to other drugs, medicaments and biological substances; Z80.41 Family history of malignant neoplasm of ovary; Z84.89 Family history of other specified conditions; Z79.899 Other long term (current) drug therapy
CPT/HCPCS: 36415; 80048; 80053; 80305; 81001; 81025; 82800; 82948; 83605; 83735; 84100; 84132; 85025; 87040; 87088; 93005; 99285; G0378; J0696; J1815; J2405; J7030; J7120

== ENCOUNTER 2024-09-28 14:19 | Emergency (ER) | payer MEDICAID ==
[~2024-09-28] VITALS: Ht 165.1 cm; Wt 63.6 kg
[2024-09-28 14:22] VITALS: BP 130/73; PULSE 76; RESP 18; O2SAT 100
[2024-09-28 15:37] LABS: STREP A SCREEN NEGATIVE (Neg)
--- NOTE | 2024-09-28 16:04 | Physician Documentation ---
History of Present Illness ~ Chief Complaint: Sore Throat Stated Complaint: DIABETES COMPLICATION Time Seen by MD: 15:17 Primary Medical Doctor: dr valdes HPI 24-YEAR-OLD FEMALE PATIENT PRESENTS TO THE ED WITH A COMPLAINT OF THROAT PAIN WHEN SWALLOWING AND HAVING WHITE PLAQUES ON HER MOUTH.. DENIES ANY RECENT ANTIBIOTIC PRESCRIPTIONS. DENIES ANY HISTORY OF THRUSH. DENIES ANY FEVERS, DENIES ANY COUGH. THIS HAS BEEN GOING ON FOR ONE WEEK Day of Onset: September 28, 2024 Medication Reconciliation Allergies: Coded Allergies: Penicillins (Verified Allergy, Mild, rash/hives, 05/28/24) azithromycin (Verified Allergy, Mild, oral ulcers, 05/28/24) sulfamethoxazole (Verified Allergy, Mild, oral ulcers, 05/28/24) trimethoprim (Verified Allergy, Mild, oral ulcers, 05/28/24) doxycycline (Verified Allergy, Unknown, 05/28/24) Scheduled Lidocaine HCl (Lidocaine HCl Viscous), 15 ML PO Q6H Scheduled PRN ONDANSETRON ODT 4mg tablet (Ondansetron Odt), 1 TAB PO Q6H PRN PRN for nausea/vomiting Miscellaneous Medications Insulin Lispro (Humalog), SQ, (Reported) Past Medical History Past Medical History: Asthma, Diabetes Past Surgical History: other Other Past Surgical History: Salpingectomy Patient History: FH: ovarian cancer MOTHER FH: thyroid disease MOTHER Maternal grandmother Alcohol Use: None Lives with: Mother Lives In: Home Occupation: student Review of Systems All Other Systems at this time: Reviewed and Negative Physical Exam Vital Signs: Temperature: 97.8, Source: Temporal, Heart Rate: 76, Respiratory Rate: 18, BP: 130/73, Pulse Oximetry: 100, Weight: 63.640 Oxygen Flow Rate: 0 Physical Exam General: Alert, no apparent distress. HEENT: PERRL, EOMI, no injection, moist mucous membranes. Neck: Full range of motion. posterior cervical lymphadenopathy and anterior lymphadenopathy Psychiatric: Normal mood and affect. Skin: Normal color, warm and dry. No edema, no ecchymosis. Progress Results/Orders Results/Orders Orders - GABRIEL JOY GEOSCIENCE SPECIALIST Cult Throat + R/O Beta Strep (09/28/24 15:37) [place] Screen (09/28/24 16:28) Completed Orders - GABRIEL JOY GEOSCIENCE SPECIALIST Strep A Rapid (09/28/24 14:33) Dexamethasone Inj (Decadron 10mg/Ml Inj) (09/28/24 16:26) Medications Received in ER Medications (Trade) Dose Ordered Sig/Radha Route PRN Reason Start Time Stop Time Status Last Admin Dose Admin (Decadron 10mg/ ml inj) 10 mg ONCE STAT PO 09/28/24 16:26 09/28/24 16:27 DC 09/28/24 16:40 10 MG Vital Signs 09/28/24 14:22 Temp 97.8 Pulse 76 Resp 18 B/P (MAP) 130/73 Pulse Ox 100 O2 Flow Rate 0 Laboratory Tests Test 09/28/24 15:11 09/28/24 16:41 Group A Streptococcus Rapid Negative Medical Decision Making Findings PATIENT PRESENTS WITH CONCERNS OVER PAIN WITH SWALLOWING AND WHITE PLAQUES HER INNER CHEEK AND BACK OF THE THROAT. CURRENTLY SUSPECTING aphthous ulcer. Giving her one dose of corticosteroid and send her home with a viscous lidocaine mononucleouisis can not be ruled out we will call her with positive results Throat Diff Dx: Considerations: Include: AIDS, Epiglottitis, Esophageal candidiasis, Hand foot mouth disease, Herpangina, Herpetic stomatitis, Herpes simplex, Infection mononucleosis, Immunodeficiency, Lico's angina, Peritonsillar abscess, Peritonsillar cellulitis, Pharyngitis-diphtheria, Pharyngitis-strepococcal, Pharyngitis-viral, Thrush, URI, Other Departure Disposition: 01 HOME / SELF CARE / HOMELESS Impression: Primary Impression: Laryngitis Additional Impressions: Irritation of pharynx Canker sores oral Mononucleosis Condition: Stable Discharge Instructions: Canker Sores, Infectious Mononucleosis, [id number], Sore Throat Referrals: NO PRIMARY CARE PROVIDER (PCP) Prescriptions Lidocaine HCl (Lidocaine HCl Viscous) 2 % Solution 15 ML PO Q6H for mouth sore pain for 1 Day, #100 ML 0 Refills Prov: GABRIEL JOY NP 09/28/24 Education Educated: Patient Educated regarding: diagnosis Signature Scribe Signature: k Attestation: The note accurately reflects work and decisions made by me.Gabriel Owen NP 09/28/24 16:19 GABRIEL JOY NP September 28, 2024 16:04
[2024-09-28] MEDS ORDERED: LIDO15SO9 PO (16:18)
[2024-09-28] MEDS: dexamethasone sod phosphate 10mg/ml inj PO STA (16:40)
[2024-09-28 16:57] LABS: MONOTEST NEGATIVE (Neg)
[2024-09-28 17:11] VITALS: TEMP 97.8
== END 2024-09-28 17:14 | disposition home or self-care (01) ==
LOC: ER 14:20
DX: J04.0 Acute laryngitis (principal); K12.0 Recurrent oral aphthae; B27.90 Infectious mononucleosis, unspecified without complication; E11.9 Type 2 diabetes mellitus without complications; J45.909 Unspecified asthma, uncomplicated; Z88.0 Allergy status to penicillin; Z88.1 Allergy status to other antibiotic agents; Z88.2 Allergy status to sulfonamides; Z90.79 Acquired absence of other genital organ(s)
CPT/HCPCS: 36415; 86308; 87081; 87880; 99283; J1100

== ENCOUNTER 2024-10-15 22:24 | Emergency (ER) | payer MEDICAID ==
[~2024-10-15] VITALS: Ht 165.1 cm; Wt 68.0 kg
[~2024-10-15 22:24] MED LIST changes: +LIDO15SO9 PO
[2024-10-15 22:59] LABS: BASOPHILS % (AUTO) 0.2 % (0-1); EOSINOPHILS % (AUTO) 0.2 % (0-6); HEMATOCRIT 41.7 % (35.0-45.0); LYMPHOCYTES # (AUTO) 1.7 X10'3 (1.1-4.8); LYMPHOCYTES % (AUTO) 8.9 % (21-51); MEAN CORPUSCULAR HEMOGLOBIN 30.1 PG (27.0-31.0); MEAN CORPUSCULAR HGB CONC 33.5 g/dL (33.0-36.5); MEAN CORPUSCULAR VOLUME 89.9 FL (78-98); MEAN PLATELET VOLUME 7.5 FL (7.4-10.4); NEUTROPHILS # (AUTO) 16.4 X10'3 (1.8-7.7); NEUTROPHILS % (AUTO) 85.7 % (42-75); PLATELET COUNT 462 X10'3 (140-440); RED BLOOD COUNT 4.64 X10'6 (4.20-5.60); RED CELL DISTRIBUTION WIDTH 12.6 % (11.5-14.5); WHITE BLOOD COUNT 19.2 X10'3 (4.5-11.0)
--- NOTE | 2024-10-15 22:59 | ELECTROCARDIOGRAPH REPORT ---
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 Andrea Jarvis Measurements Intervals [place] Rate: 120 P: 82 ME: 148 QRS: 16 QRSD: 88 T: 53 QT: 310 QTc: 438 Interpretive Statements Sinus tachycardia Probable left atrial enlargement Abnormal Q suggests anterior infarct Baseline wander in lead(s) II,III,aVL,aVF Electronically Signed On 10-16-2024 6:34:[address] Andrea Jarvis Please click the below link to view image of tracing.
[2024-10-15 23:18] LABS: ANION GAP 16 (8-16); BLOOD UREA NITROGEN 15 MG/DL (7-18); BUN/CREATININE RATIO 12.9 (10.0-20.0); CHLORIDE 93 MMOL/L (99-107); CREATININE 1.16 MG/DL (0.40-0.90); POTASSIUM 4.3 MMOL/L (3.5-5.1); SODIUM 128 MMOL/L (135-145); TOTAL CARBON DIOXIDE 18.7 MMOL/L (24-32); eCRCL 68 ML/MIN; eGFR 58 ML/MIN
[2024-10-15 23:22] LABS: GLUCOSE 661 MG/DL (70-104)
[2024-10-15 23:34] LABS: BILIRUBIN,URINE NEGATIVE (Neg); CLARITY,URINE CLEAR (Clear); COLOR,URINE YELLOW (Yellow); GLUCOSE, URINE >=1000 mg/dl (Neg); KETONES,URINE >=80 mg/dl (Neg); LEUKOCYTE ESTERASE ,URINE NEGATIVE (Neg); NITRITES, URINE NEGATIVE (Neg); OCCULT BLOOD,URINE NEGATIVE (Neg); PROTEIN,URINE NEGATIVE (Neg); UROBILINOGEN,URINE 0.2 E.U/dL (0.2-1.0)
[2024-10-15 23:39] LABS: UA COLLECTION TYPE CLN CATCH MIDSTREAM
[2024-10-15 23:49] LABS: BACTERIA,URINE 2+ /HPF (Neg); MUCUS STRANDS NONE SEEN /LPF (Neg); RBC,URINE 0-2 /HPF (0-2); SQUAMOUS EPITHELIAL CELL,UR FEW /LPF (FEW); WBC,URINE 0-4 /HPF (0-4)
[2024-10-16] MEDS: normal saline 1000ML IV soln IVB ONE (00:07)
[2024-10-16] MEDS: insulin regular, human 10 units/0.1 ml syringe IV ONE (00:09)
--- NOTE | 2024-10-16 00:27 | Physician Documentation ---
History of Present Illness ~ Chief Complaint: Hyperglycemia Stated Complaint: DIABETIC COMPLICATIONS Time Seen by MD: 00:16 Primary Medical Doctor: dr valdes HPI Patient presents to the emergency room with hyperglycemia. Patient has a type 1 diabetic in his noticed at her blood sugars began to get high yesterday. She was able to get her blood sugar down to 98 she states before bed last night and woke up with a sugar of 80. All day long she has been fighting her blood sugars in the continued to climb therefore she came here to the emergency room. She denies any dysuria but states she gets urinary tract infections and has no symptoms. No fevers no cough cold congestion no abdominal pain. Medication Reconciliation Allergies: Coded Allergies: Penicillins (Verified Allergy, Mild, rash/hives, 05/28/24) azithromycin (Verified Allergy, Mild, oral ulcers, 05/28/24) sulfamethoxazole (Verified Allergy, Mild, oral ulcers, 05/28/24) trimethoprim (Verified Allergy, Mild, oral ulcers, 05/28/24) doxycycline (Verified Allergy, Unknown, 05/28/24) Scheduled Lidocaine HCl (Lidocaine HCl Viscous), 15 ML PO Q6H Scheduled PRN ONDANSETRON ODT 4mg tablet (Ondansetron Odt), 1 TAB PO Q6H PRN PRN for nausea/vomiting Miscellaneous Medications Insulin Lispro (Humalog), SQ, (Reported) Past Medical History Past Medical History: Asthma, Diabetes Past Surgical History: other Other Past Surgical History: Salpingectomy Patient History: FH: ovarian cancer MOTHER FH: thyroid disease MOTHER Maternal grandmother Alcohol Use: None Lives with: Mother Lives In: Home Occupation: student Review of Systems ROS All review of systems negative except as per HPI Physical Exam Vital Signs: Temperature: 98.5, Source: Temporal, Heart Rate: 122, Respiratory Rate: 18, BP: 116/59, Pulse Oximetry: 99, Weight: 68.000 Oxygen Flow Rate: 0 Physical Exam General: Patient is awake, alert, oriented x4 in no acute distress and well appearing.~ Head: Normocephalic and atraumatic. Eyes: Conjunctival normal. EOMI. PERRL. ENT: Mucous membranes moist. Neck: Supple, trachea is midline. Chest: Clear to auscultation bilaterally without rales, rhonchi, or wheezes. There is no accessory muscle use or retractions. Cardiac: Tachycardic and regular without murmurs, gallops, or rubs. Abd: Soft, nondistended, nontender, with normoactive bowel sounds. No guarding, rebound, or rigidity. Progress Results/Orders Results/Orders Completed Orders - DELMAR CASTELLON MD Cbc/Diff (10/15/24 22:47) BMP (10/15/24 22:47) Stat Ekg (10/15/24 ) Normal Saline 1000ml (Sodium Chloride 10 (10/15/24 23:25) Insulin Regular, Human (Humulin R 10 Uni (10/15/24 23:25) Procalcitonin (10/15/24 23:26) Ua W/Microscopic, Cult If Ind (10/15/24 23:20) Ondansetron Inj. (Zofran 4mg/2ml Vial) (10/16/24 00:30) Ceftriaxone/[id number] 1gm (Rocephin 1 (10/16/24 01:00) BMP (10/16/24 03:06) Potassium Cl Sr Tablet (K-Dur Tablet) (10/16/24 04:16) Normal Saline 1000ml (Sodium Chloride 10 (10/16/24 04:20) Potassium Cl Sr Tablet (K-Dur Tablet) (10/16/24 05:28) Medications Received in ER Medications (Trade) Dose Ordered Sig/Radha Route PRN Reason Start Time Stop Time Status Last Admin Dose Admin (sodium chloride 1000ml IV soln) 2,000 ml ONCE ONCE IVB 10/15/24 23:25 10/15/24 23:27 DC 10/16/24 00:07 2,000 ML (HumuLIN R 10 units per 0.1 ML syringe) 20 units ONCE ONCE IV 10/15/24 23:25 10/15/24 23:48 DC 10/16/24 00:09 20 UNITS (Zofran 4mg/2ml vial) 4 mg ONCE ONCE IV 10/16/24 00:30 10/16/24 00:31 DC 10/16/24 01:42 4 MG Ceftriaxone Sodium 50 ml @ 100 mls/hr ONCE ONCE IV 10/16/24 01:00 10/16/24 01:29 DC 10/16/24 01:42 100 MLS/HR (K-DUR tablet) 40 meq ONCE STAT PO 10/16/24 04:16 10/16/24 04:19 DC 10/16/24 04:29 40 MEQ Sodium Chloride 1,000 ml @ 1,000 mls/hr ONCE ONCE IV 10/16/24 04:20 10/16/24 05:19 DC 10/16/24 04:33 1,000 MLS/HR (K-DUR tablet) 40 meq ONCE STAT PO 10/16/24 05:28 10/16/24 05:32 DC 10/16/24 05:59 40 MEQ Vital Signs 10/15/24 10/16/24 10/16/24 10/16/24 22:41 03:34 04:34 05:44 Temp 98.5 98.5 Pulse 122 102 93 Resp 18 14 15 14 B/P (MAP) 116/59 112/59 (76) 112/59 (76) Pulse Ox 99 99 99 O2 Flow Rate 0 0 0 Laboratory Tests Test 10/15/24 22:40 10/15/24 22:53 10/15/24 23:20 10/16/24 00:24 Glucometer 589 *H 476 *H White Blood Count 19.2 H Red Blood Count 4.64 Hemoglobin 14.0 Hematocrit 41.7 Mean Corpuscular Volume 89.9 Mean Corpuscular Hemoglobin 30.1 Mean Corpuscular Hemoglobin Concent 33.5 Red Cell Distribution Width 12.6 Platelet Count 462 H Mean Platelet Volume 7.5 Neutrophils (%) (Auto) 85.7 H Lymphocytes (%) (Auto) 8.9 L Monocytes (%) (Auto) 5.0 Eosinophils (%) (Auto) 0.2 Basophils (%) (Auto) 0.2 Neutrophils # (Auto) 16.4 H Lymphocytes # (Auto) 1.7 Monocytes # (Auto) 1.0 H Eosinophils # (Auto) 0.0 Basophils # (Auto) 0.0 CBC Comment Sodium Level 128 L Potassium Level 4.3 Chloride Level 93 L Carbon Dioxide Level 18.7 L Anion Gap 16 Blood Urea Nitrogen 15 Creatinine 1.16 H Estimated GFR/1.73 m2 58 BUN/Creatinine Ratio 12.9 Glucose Level 661 *H Calcium Level 9.0 Albumin 4.0 Procalcitonin < 0.05 Chemistry Comments Urine Specimen Description Cln catch midstream Urine Color Yellow Urine Clarity Clear Urine pH 6.0 Urine Specific [place] <=1.005 Urine Protein Negative Urine Glucose (UA) >=1000 H Urine Ketones >=80 Urine Occult Blood Negative Urine Nitrite Negative Urine Bilirubin Negative Urine Urobilinogen 0.2 Urine Leukocyte Esterase Negative Urine RBC 0-2 Urine WBC 0-4 Urine Squamous Epithelial Cells Few Urine Bacteria 2+ Urine Mucus None seen Urine Culture Indicated Not ind Volume Urine Centrifuged 10 ml Urine Comment Test 10/16/24 01:50 10/16/24 03:22 10/16/24 05:43 Glucometer 192 H 256 H 154 H Sodium Level 140 # Potassium Level 3.4 L Chloride Level 104 Carbon Dioxide Level 21.5 L Anion Gap 15 Blood Urea Nitrogen 14 Creatinine 0.86 Estimated GFR/1.73 m2 82 BUN/Creatinine Ratio 16.3 Glucose Level 262 H Calcium Level 8.2 L Albumin 3.5 Chemistry Comments Departure Disposition: HOME / SELF CARE / HOMELESS Impression: Primary Impression: Uncontrolled diabetes mellitus Additional Impression: UTI (urinary tract infection) Condition: Improved Discharge Instructions: Urinary Tract Infection, Adult Referrals: NO PRIMARY CARE PROVIDER (PCP) Prescriptions Cephalexin*Monohydrate* (Keflex*) 500 Mg Capsule 1 CAP PO Q8H for 10 Days, #30 CAP Prov: DELMAR CASTELLON MD 10/16/24 Education Educated: Patient Educated regarding: diagnosis, treatment, need for follow up Signature Scribe Signature: No scribe Attestation: The note accurately reflects work and decisions made by me.Delmar Castellon MD 10/16/24 06:09 DELMAR CASTELLON MD Oct 16, 2024 00:27
[2024-10-16] MEDS: ondansetron/PF 4mg/2ml inj IV ONE (01:42)
[2024-10-16] MEDS: CefTRIAXone/D5W-Rocephin 1gm 50 ML IV ONE (01:42)
[2024-10-16 04:09] LABS: ALBUMIN 3.5 G/DL (3.4-5.0); ANION GAP 15 (8-16); BLOOD UREA NITROGEN 14 MG/DL (7-18); BUN/CREATININE RATIO 16.3 (10.0-20.0); CALCIUM 8.2 MG/DL (8.5-10.1); CHLORIDE 104 MMOL/L (99-107); CREATININE 0.86 MG/DL (0.40-0.90); GLUCOSE 262 MG/DL (70-104); POTASSIUM 3.4 MMOL/L (3.5-5.1); SODIUM 140 MMOL/L (135-145); TOTAL CARBON DIOXIDE 21.5 MMOL/L (24-32); eCRCL 92 ML/MIN; eGFR 82 ML/MIN
[2024-10-16] MEDS: potassium Cl 20 mEq SR tablet PO STA ×2 (04:29→05:59)
[2024-10-16] MEDS: normal saline 1000ml 1,000 ML IV ONE (04:33)
[2024-10-16 04:34] VITALS: BP 112/59; PULSE 93; TEMP 98.5; O2SAT 99
[2024-10-16 05:44] VITALS: RESP 14
[2024-10-16] MEDS ORDERED: CEPH-585 PO (06:09)
== END 2024-10-16 06:22 | disposition home or self-care (01) ==
LOC: ER 22:24
DX: E10.65 Type 1 diabetes mellitus with hyperglycemia (principal); N39.0 Urinary tract infection, site not specified; J45.909 Unspecified asthma, uncomplicated; Z88.0 Allergy status to penicillin; Z88.1 Allergy status to other antibiotic agents; Z88.2 Allergy status to sulfonamides; Z90.79 Acquired absence of other genital organ(s)
CPT/HCPCS: 36415; 80048; 81001; 82948; 84145; 85025; 93005; 96361; 96365; 96375; 99284; J0696; J1815; J2405; J7030

== ENCOUNTER 2024-12-07 17:46 | Emergency (ER) | payer MEDICAID ==
[~2024-12-07] VITALS: Ht 165.1 cm; Wt 66.0 kg
--- NOTE | 2024-12-07 18:00 | Physician Documentation ---
History of Present Illness ~ Stated Complaint: SZ 30 MINUTES AGO/LOW BLOOD SUGAR Time Seen by MD: 18:24 OK to notify your PCP?: Yes Primary Medical Doctor: dr valdes Source: patient Mode of Arrival: POV Exam Limitations: no limitations HPI 24-year-old female presents with unstable blood sugars. She is type 1 diabetic and reports that her blood sugar has been spiking and dropping it very quickly. She did have 1 light beer today. She has had 3 seizures within the past 24 hours. She reports that she has not have a seizure disorder and this only occurs when she has abnormal blood sugars. Last seizure was 30 minutes prior to arrival and she is alert and oriented but drowsy. Medication Reconciliation Allergies: Coded Allergies: Penicillins (Verified Allergy, Mild, rash/hives, 05/28/24) azithromycin (Verified Allergy, Mild, oral ulcers, 05/28/24) sulfamethoxazole (Verified Allergy, Mild, oral ulcers, 05/28/24) trimethoprim (Verified Allergy, Mild, oral ulcers, 05/28/24) doxycycline (Verified Allergy, Unknown, 05/28/24) Scheduled Lidocaine HCl (Lidocaine HCl Viscous), 15 ML PO Q6H Scheduled PRN ONDANSETRON ODT 4mg tablet (Ondansetron Odt), 1 TAB PO Q6H PRN PRN for nausea/vomiting Miscellaneous Medications Insulin Lispro (Humalog), SQ, (Reported) Past Medical History Past Medical History: Asthma, Diabetes Past Surgical History: other Other Past Surgical History: Salpingectomy Patient History: FH: ovarian cancer MOTHER FH: thyroid disease MOTHER Maternal grandmother Smoking Status: Unknown if ever smoked Alcohol Use: None Lives with: Mother Lives In: Home Occupation: student Review of Systems All Other Systems at this time: Reviewed and Negative Constitutional: Reports: see HPI Physical Exam Vital Signs: RN Vital Signs have been reviewed: Yes Pulse Oximetry Reflects: adequate oxygenation Physical Exam General: The patient is well developed, well nourished, nontoxic appearing and is in no acute distress. Skin: [place], warm and dry with no rashes. HEENT: Head was normocephalic and atraumatic. Eyes - pupils equal, round, r eactive to light and accommodation. Extraocular movements were intact. Conjunctivae were nonicteric. The mouth and oropharynx were clear with moist mucous membranes. There were no pharyngeal exudates or erythema. Neck: Supple and nontender. There was no jugular venous distention, lymphadenopathy, thyromegaly or masses. Chest: Clear to auscultation bilaterally without wheezes, rales or rhonchi. No accessory muscle use. No dullness to percussion. Heart: Rate regular and rhythmic. S1, S2. No murmurs. Palpation of the chest wall was normal. No rubs or thrills. Abdomen: Soft, nontender and nondistended. Positive bowel sounds. No guarding or rebound. No hepatosplenomegaly or palpable masses. Extremities: No cyanosis, clubbing or edema. The patient moves all extremities. Pulses were equal and symmetric. Neurologic: Motor and sensation grossly intact. A & O x4. Psychologic: The patient was oriented to person, place and time. Progress Progress Note RECORD REVIEW: Patient was last seen here on 10/15/2024 for uncontrolled DM. Results/Orders Reviewed/noted all lab results: Yes Results/Orders Completed Orders - ANDREA JARVIS MD Urinalysis, Cult If Indicated (12/07/24 18:39) Normal Saline 1000ml (0.9% Sodium Chlori (12/07/24 18:40) Ketorolac Trometh 30mg/Ml Vial (Toradol (12/07/24 19:05) Ketorolac Trometh 15mg/Ml Vial (Toradol (12/07/24 19:15) Medications Received in ER Medications (Trade) Dose Ordered Sig/Radha Route PRN Reason Start Time Stop Time Status Last Admin Dose Admin (0.9% sodium chloride (NS) 1000ml IV soln) 1,000 ml ONCE ONCE IVB 12/07/24 18:40 12/07/24 18:41 DC 12/07/24 18:59 1,000 ML (Toradol inj. 30mg/ml) 15 mg ONCE ONCE IV 12/07/24 19:05 12/07/24 19:07 DC 12/07/24 19:13 15 MG Vital Signs 12/07/24 12/07/24 12/07/24 12/07/24 17:54 18:26 18:27 19:23 Temp 99.3 Pulse 101 91 93 Resp 18 17 19 B/P (MAP) 141/77 132/87 (102) 130/80 (97) Pulse Ox 100 100 100 O2 Flow Rate 0 12/07/24 21:56 Temp 99.3 Pulse 80 Resp 18 B/P (MAP) 146/65 Pulse Ox 100 Laboratory Tests Test 12/07/24 17:57 12/07/24 18:06 12/07/24 19:22 12/07/24 20:18 Glucometer 142 H 121 H White Blood Count 11.6 H Red Blood Count 5.11 Hemoglobin 15.0 Hematocrit 44.0 Mean Corpuscular Volume 86.1 Mean Corpuscular Hemoglobin 29.3 Mean Corpuscular Hemoglobin Concent 34.0 Red Cell Distribution Width 12.5 Platelet Count 348 Mean Platelet Volume 7.2 L Neutrophils (%) (Auto) 43.6 Lymphocytes (%) (Auto) 26.0 Monocytes (%) (Auto) 7.3 Eosinophils (%) (Auto) 22.7 H Basophils (%) (Auto) 0.4 Neutrophils # (Auto) 5.0 Lymphocytes # (Auto) 3.0 Monocytes # (Auto) 0.8 Eosinophils # (Auto) 2.6 H Basophils # (Auto) 0.1 CBC Comment Differential Total Cells Counted 100 Neutrophils % (Manual) 50.0 Lymphocytes % (Manual) 25.0 Monocytes % (Manual) 6.0 Eosinophils % (Manual) 19.0 H Platelet Estimate Normal Red Blood Cell Morphology Normal Basophilic Stippling Sodium Level 138 Potassium Level 3.6 Chloride Level 103 Carbon Dioxide Level 24.7 Anion Gap 10 Blood Urea Nitrogen 5 L Creatinine 0.95 H Estimated GFR/1.73 m2 73 BUN/Creatinine Ratio 5.3 L Glucose Level 166 H Calcium Level 8.9 Magnesium Level 1.9 Total Bilirubin 0.6 Direct Bilirubin 0.1 Aspartate Amino Transf (AST/SGOT) 15 Alanine Aminotransferase (ALT/SGPT) 23 Alkaline Phosphatase 134 H Total Protein 7.6 Albumin 3.8 Globulin 3.8 Albumin/Globulin Ratio 1.0 L Lipase 13 L Chemistry Comments Urine Specimen Description Cln catch midstream Urine Color Yellow Urine Clarity Clear Urine pH 6.5 Urine Specific [place] 1.010 Urine Protein Negative Urine Glucose (UA) 500 H Urine Ketones Negative Urine Occult Blood Negative Urine Nitrite Negative Urine Bilirubin Negative Urine Urobilinogen 0.2 Urine Leukocyte Esterase Negative Urine Culture Indicated Not ind Volume Urine Centrifuged 10 ml Urine Comment Re-Evaluation Re-Evaluation : Re-Evaluation: Improved Progress Patient was seen and examined. Patient is given reassurance. There was no signs of any infection to explain a drop in glucose levels she has somewhat labile in her levels. Her hemoglobin A1c is at excellent levels. Patient denies any fevers or chills. There was no formal history of seizure activity in the sense that she is not on any medications. Patient states she has seizures if her glucose levels have a precipitous drop. There was no signs of infection to explain a precipitous drop. We discussed it is necessary to control her diabetes. Patient is aware. Without any signs of infection or any other significant abnormalities patient was then discharged home. Patient's laboratory work shows a normal urinalysis. CBC has a borderline leukocytosis of 11.6 without any left shift no anemia. Patient's glucose slightly elevated at 166. Otherwise chemistry and LFTs are within normal limits including lipase. Urinalysis shows no signs of infection. Patient received Toradol and a L bolus and was ultimately discharged home. Continuous monitor tech interpretation shows normal sinus rhythm heart rate 90s, no ectopy, normal, my interpretation. Pulse oximetry monitor interpretation shows normal oxygenation at 99% room air, normal, my interpretation. Medical Decision Making Additional info obtained from: old records Differential Dx:Considerations: Include: Appendicitis, Bowel obstruction, Cholecysitis, Dehydration, Diabetes, Diabetic coma, DKA, Electrolyte abnormality, Encephalopathy, Gastritis, Hepatitis, Hyperglycemia, Hyperosmolar state, Hypoglycemia, Pancreatitis, Pyelonephritis, UTI, Other Departure Time of Disposition: 21:47 Disposition: 01 HOME / SELF CARE / HOMELESS Impression: Primary Impression: Seizure Condition: Stable Discharge Instructions: Seizure, Adult Referrals: NO PRIMARY CARE PROVIDER (PCP) Education Educated: Patient Educated regarding: diagnosis, treatment, need for follow up Additional Comment Medical Screen Exam This patient recieved a medical screening examination. After reviewing the individual's medical complaints with presenting symptoms and performing an appropriate physical examination, it was determined that no immediate life- threatening emergency medical condition is present. This individual is also not a women having contractions. Signature Scribe Signature: Scribed for Andrea Jarvis MD by Silva Hewitt 12/07/24 19:12 Attestation: The note accurately reflects work and decisions made by me.Andrea Jarvis MD 12/07/24 23:11 JUDY LANZA Dec 07, 2024 18:00 ANDREA JARVIS MD Dec 07, 2024 18:31
[2024-12-07 18:14] LABS: MEAN PLATELET VOLUME 7.2 FL (7.4-10.4); RED CELL DISTRIBUTION WIDTH 12.5 % (11.5-14.5)
[2024-12-07 18:28] LABS: CREATININE 0.95 MG/DL (0.40-0.90); TOTAL CARBON DIOXIDE 24.7 MMOL/L (24-32); eCRCL 83 ML/MIN; eGFR 73 ML/MIN
[2024-12-07 18:40] LABS: LYMPHOCYTES % (MANUAL) 25.0 % (21-51)
[2024-12-07 18:43] LABS: EOSINOPHILS % (MANUAL) 19.0 % (0-6); MONOCYTES % (MANUAL) 6.0 % (2-12); NEUTROPHILS % (MANUAL) 50.0 % (42-75)
[2024-12-07 18:44] LABS: PLATELET ESTIMATE NORMAL
[2024-12-07] MEDS: normal saline 1000ML IV soln IVB ONE (18:59)
[2024-12-07] MEDS: ketorolac trometh 30MG/ML vial 30 MG/ML VIAL IV ONE (19:13)
[2024-12-07] MEDS: ketorolac trometh 15mg/ml vial 15 MG/ML ML IV ONE (19:15)
[2024-12-07 21:08] LABS: LEUKOCYTE ESTERASE ,URINE NEGATIVE (Neg); NITRITES, URINE NEGATIVE (Neg); OCCULT BLOOD,URINE NEGATIVE (Neg)
[2024-12-07 21:10] LABS: UA COLLECTION TYPE CLN CATCH MIDSTREAM
[2024-12-07 21:56] VITALS: BP 146/65; PULSE 80; RESP 18; TEMP 99.3; O2SAT 100
== END 2024-12-07 22:03 | disposition home or self-care (01) ==
LOC: ER 17:47
DX: R56.9 Unspecified convulsions (principal); E11.9 Type 2 diabetes mellitus without complications; J45.909 Unspecified asthma, uncomplicated; Z88.0 Allergy status to penicillin; Z88.1 Allergy status to other antibiotic agents; Z88.2 Allergy status to sulfonamides; Z79.4 Long term (current) use of insulin; Z79.899 Other long term (current) drug therapy
CPT/HCPCS: 80048; 80076; 81003; 82948; 83690; 83735; 85007; 85025; 96361; 96374; 99283; J1885; J7030

== ENCOUNTER 2025-04-19 14:18 | Emergency (ER) | payer MEDICAID ==
[~2025-04-19] VITALS: Ht 154.9 cm; Wt 60.0 kg
[2025-04-19 14:22] VITALS: TEMP 97.7
--- NOTE | 2025-04-19 14:26 | Physician Documentation ---
History of Present Illness ~ Stated Complaint: SEIZURE Time Seen by MD: 14:22 Primary Medical Doctor: dr valdes HPI 25-year-old female who presents with reported seizure She tells me that she has a history of seizures, that normally happen when she is feeling very stressed. It also sometimes is related to her blood sugars, she is a type 1 diabetic. Last night she did drink quite a bit of alcohol. Today she was feeling stressed, and felt like she was going to have a seizure. She did take oral Ativan. Short while later she had a seizure that was witnessed by her boyfriend. EMS reports that her blood glucose level was slightly elevated. No seizure activity noted by EMS. No fevers, chills or other infectious symptoms. She is not on an antiepileptic medication. Medication Reconciliation Allergies: Coded Allergies: Penicillins (Verified Allergy, Mild, rash/hives, 05/28/24) azithromycin (Verified Allergy, Mild, oral ulcers, 05/28/24) sulfamethoxazole (Verified Allergy, Mild, oral ulcers, 05/28/24) trimethoprim (Verified Allergy, Mild, oral ulcers, 05/28/24) doxycycline (Verified Allergy, Unknown, 05/28/24) Scheduled Lidocaine HCl (Lidocaine HCl Viscous), 15 ML PO Q6H Scheduled PRN ONDANSETRON ODT 4mg tablet (Ondansetron Odt), 1 TAB PO Q6H PRN PRN for nausea/vomiting Miscellaneous Medications Insulin Lispro (Humalog), SQ, (Reported) Past Medical History Past Medical History: Asthma, Diabetes Past Surgical History: other Other Past Surgical History: Salpingectomy Patient History: FH: ovarian cancer MOTHER FH: thyroid disease MOTHER Maternal grandmother Alcohol Use: None Lives with: Mother Lives In: Home Occupation: student Review of Systems Constitutional: Denies: fever Gastrointestinal: Denies: abdominal pain Neurological: Reports: tonic-clonic seizures Physical Exam Physical Exam General: This is a pleasant and overall well-appearing young female, not in distress HEENT: Atraumatic, oropharynx is dry, no tongue laceration Heart: Mild tachycardic, appears regular Lungs: normal work of breathing, normal oxygen saturation on room air Abdomen: Soft, nondistended, nontender all quadrants Extremities: Warm and well-perfused, no traumatic findings Neuro: Alert and oriented, does not appear confused Psychiatric: Calm and cooperative with exam Progress Results/Orders Results/Orders Orders - GREGORY SANCHEZ MD Insulin Lispro 100 Unit/Ml 3ml (Humalog (04/19/25 17:00) Completed Orders - GREGORY SANCHEZ MD Cbc/Diff (04/19/25 14:25) CMP (04/19/25 14:25) Hcg Serum Ql (04/19/25 14:25) LA (04/19/25 14:25) Ethanol (04/19/25 14:26) Normal Saline 1000ml (0.9% Sodium Chlori (04/19/25 14:35) Ua W/Microscopic, Cult If Ind (04/19/25 14:36) Insulin Lispro 100 Unit/Ml 3ml (Humalog (04/19/25 15:26) Medications Received in ER Medications (Trade) Dose Ordered Sig/Radha Route PRN Reason Start Time Stop Time Status Last Admin Dose Admin (Humalog Kwikpen U-100 (100 Unit/ ml) 3ml) 5 unit AC ONCE SQ 04/19/25 15:26 04/19/25 15:27 DC 04/19/25 15:27 5 UNIT Vital Signs 04/19/25 04/19/25 04/19/25 14:22 14:31 16:36 Temp 97.7 Pulse 107 126 Resp 15 16 16 B/P (MAP) 122/66 122/66 (84) Pulse Ox 100 99 Laboratory Tests Test 04/19/25 14:36 04/19/25 14:46 04/19/25 14:57 04/19/25 16:30 Urine Specimen Description Urinal Urine Color Straw Urine Clarity Clear Urine pH 6.0 Urine Specific Clubb 1.010 Urine Protein Negative Urine Glucose (UA) >=1000 H Urine Ketones 40 H Urine Occult Blood Negative Urine Nitrite Negative Urine Bilirubin Negative Urine Urobilinogen 0.2 Urine Leukocyte Esterase Negative Urine RBC None seen Urine WBC 0-4 Urine Squamous Epithelial Cells Moderate Urine Bacteria 1+ Urine Mucus None seen Urine Culture Indicated Not ind Volume Urine Centrifuged 10 ml Urine Comment White Blood Count 13.2 H Red Blood Count 4.53 Hemoglobin 13.3 Hematocrit 38.7 Mean Corpuscular Volume 85.5 Mean Corpuscular Hemoglobin 29.3 Mean Corpuscular Hemoglobin Concent 34.3 Red Cell Distribution Width 12.5 Platelet Count 364 Mean Platelet Volume 7.7 Neutrophils (%) (Auto) 78.5 H Lymphocytes (%) (Auto) 12.3 L Monocytes (%) (Auto) 8.3 Eosinophils (%) (Auto) 0.7 Basophils (%) (Auto) 0.2 Neutrophils # (Auto) 10.4 H Lymphocytes # (Auto) 1.6 Monocytes # (Auto) 1.1 H Eosinophils # (Auto) 0.1 Basophils # (Auto) 0.0 CBC Comment Sodium Level 135 Potassium Level 4.3 Chloride Level 101 Carbon Dioxide Level 20.8 L Anion Gap 13 Blood Urea Nitrogen 9 Creatinine 0.94 H Estimated GFR/1.73 m2 73 BUN/Creatinine Ratio 9.6 L Glucose Level 453 *H Lactic Acid Level 0.9 Calcium Level 8.2 L Total Bilirubin 1.3 H Aspartate Amino Transf (AST/SGOT) 17 Alanine Aminotransferase (ALT/SGPT) 20 Alkaline Phosphatase 153 H Total Protein 7.3 Albumin 3.6 Globulin 3.7 Albumin/Globulin Ratio 1.0 L Human Chorionic Gonadotropin, Qual Negative Chemistry Comments Ethyl Alcohol Level < 10 Glucometer 466 *H 320 H Medical Decision Making Additional information obtaine: N/A Findings na Differential Dx:Considerations: Include: Psychogenic seizure, Due to alcohol withdrawl, Anticonvulsant withdrawl, Due to drug ingestion, Due to mass lesion, Epilepsy-break through Additional Comment The patient presents with a reported seizure-like event. She is found to have elevated blood glucose. Her labs did not show signs of DKA, or other dangerous process. She was given insulin and oral fluids and her glucose trended in a better direction. Overall, no evidence of a dangerous medical emergency at this time. Given that she is not on antiepileptics, she may have nonepileptic seizures. On re-evaluation she had no complaints and was anxious to leave. She will be discharged home. Departure Time of Disposition: 16:49 Disposition: 01 HOME / SELF CARE / HOMELESS Impression: Primary Impression: Seizure-like activity Additional Impression: Hyperglycemia due to type 1 diabetes mellitus Condition: Improved Discharge Instructions: Hyperglycemia Referrals: NO PRIMARY CARE PROVIDER (PCP) Education Educated: Patient Educated regarding: diagnosis, treatment, need for follow up Signature Scribe Signature: na Attestation: GREGORY Livingston MD Apr 19, 2025 14:26
[2025-04-19] MEDS: normal saline 1000ml 1,000 ML IV ONE (14:52)
[2025-04-19 15:08] LABS: MEAN PLATELET VOLUME 7.7 FL (7.4-10.4); RED CELL DISTRIBUTION WIDTH 12.5 % (11.5-14.5)
[2025-04-19 15:10] LABS: LEUKOCYTE ESTERASE ,URINE NEGATIVE (Neg); NITRITES, URINE NEGATIVE (Neg); OCCULT BLOOD,URINE NEGATIVE (Neg)
[2025-04-19 15:12] LABS: UA COLLECTION TYPE URINAL
[2025-04-19 15:16] LABS: MUCUS STRANDS NONE SEEN /LPF (Neg); SQUAMOUS EPITHELIAL CELL,UR MODERATE /LPF (FEW)
[2025-04-19] MEDS: INSULIN LISPRO 100 UNIT/ML INSULN.PEN MULTI-DOSE SQ ONE ×2 (15:22→15:27)
[2025-04-19 15:23] LABS: CREATININE 0.94 MG/DL (0.40-0.90); TOTAL CARBON DIOXIDE 20.8 MMOL/L (24-32); eCRCL 70 ML/MIN; eGFR 73 ML/MIN
[2025-04-19 15:26] LABS: ETHANOL < 10 MG/DL (<10); HCG SERUM QL NEGATIVE
[2025-04-19 17:08] VITALS: BP 102/74; PULSE 98; RESP 15; O2SAT 98
== END 2025-04-19 17:10 | disposition home or self-care (01) ==
LOC: ER 14:18
DX: R56.9 Unspecified convulsions (principal); E10.65 Type 1 diabetes mellitus with hyperglycemia; J45.909 Unspecified asthma, uncomplicated; Z88.0 Allergy status to penicillin; Z88.1 Allergy status to other antibiotic agents; Z88.2 Allergy status to sulfonamides; Z90.79 Acquired absence of other genital organ(s)
CPT/HCPCS: 36415; 80053; 80320; 81001; 82948; 83605; 84703; 85025; 96372; 99283; J1815